=== PATIENT | female | born 1940 | race Caucasian/White ===

== ENCOUNTER 2016-12-18 11:04 | Emergency (ER) | payer MEDICARE ==
[2016-12-18] MEDS ORDERED: Ketorolac Tromethamine 30 MG/ML VIAL ONE (13:07)
[2016-12-18] MEDS ORDERED: Ondansetron HCl/PF 4 MG/2 ML Vial ONE (13:07)
[2016-12-18] MEDS ORDERED: cloNIDine HCl 0.1 MG TAB ONE (13:07)
[2016-12-18 13:14] LABS: Eosinophils 2 % (0-10); Hemoglobin 12.7 g/dL (12.0-16.0); Lymphocytes 25 % (21-51); MDiff Complete? YES; Mean Corpuscular HGB CONC 33.6 g/dL (32.0-36.0); Mean Corpuscular Hemoglobin 31.4 pg (27.0-31.0); Mean Corpuscular Volume 93.3 fl (81.0-99.0); Monocytes 6 % (0-10); Neutrophil 65 % (42-75); Platelet Count 322 thou/uL (130-400); RBC Distribution Width 11.3 % (11.5-14.5); Reactive Lymphocytes 2 % (0-10); Red Blood Cell (RBC) Count 4.03 mill/uL (4.20-5.40); White Blood Cell (WBC) Count 8.9 thou/uL (4.8-10.8)
[2016-12-18 13:20] LABS: INR-International Normal Ratio 0.9; PTT 27.3 SEC (22.9-36.1); Prothrombin Time 12.1 SEC (12.0-14.7)
[2016-12-18 13:30] LABS: ALT (SGPT) 13 U/L (0-55); AST (SGOT) 20 U/L (5-34); Albumin 3.9 g/dL (3.4-4.8); Alkaline Phosphatase 66 U/L (40-150); Anion Gap 16 mmol/L (10-20); BUN (Urea Nitrogen) 37 mg/dL (9.8-20.1); Bilirubin, Total 0.3 mg/dL (0.2-1.2); CK (CPK) 91 U/L (29-168); Calc. Creatinine Clearance 0 mL/min (70-130); Calcium 9.5 mg/dL (7.8-10.44); Carbon Dioxide 24 mmol/L (23-31); Chloride 100 mmol/L (98-107); Estimated GFR-MDRD 41; Globulin 3.2 g/dL (2.4-3.5); Glucose 72 mg/dL (83-110); Potassium 4.7 mmol/L (3.5-5.1); Protein, Total 7.1 g/dL (5.8-8.1); Sodium 135 mmol/L (136-145)
[2016-12-18 13:32] LABS: CKMB 1.7 ng/mL (0-6.6); Troponin I 0.011 ng/mL (< 0.028)
--- NOTE | 2016-12-18 13:56 | RAD ---
AP CHEST: History: 76-year-old with history of chest pain. Date: 12-18-16 Comparison: 03-09-15 FINDINGS: AP view chest demonstrates a granuloma in the mid right lung. The lungs are well aerated. No evide nce of active intrathoracic disease is seen. No evidence of effusions, pneumonia or pneumothorax se en. IMPRESSION: Unremarkable AP view chest. POS: [facility]
--- NOTE | 2016-12-18 15:27 | ERRECORD ---
[facility] EMERGENCY RECORD HPI GENERAL (13:02 LLDO) CHIEF COMPLAINT: Patient presents for evaluation of elevated blood pressure. admits to not always taking her meds on time...or at all sometimes. has chronic pain in the left knee and is being seen for it. has been having left chest pain at times for a couple of months. no sob or nausea or diaphoresis. pain worse with palpation, movement or deep breathing. HISTORIAN: History provided by patient, History provided by patient's caregiver, also has frontal headache. MECHANISM OF INJURY: Unknown mechanism, Mechanism of injury is unknown, No alcohol use associated with this incident, No drug use associated with this incident, No domestic violence associated with this incident. LOCATION: Symptoms are generalized. SEVERITY: Maximum severity of symptoms moderate, Currently symptoms are moderate. TIME COURSE: Gradual onset of symptoms, Symptoms are worsening, are constant. ASSOCIATED WITH: Associated with ONLY ABOVE. EXACERBATED BY: Patient's condition exacerbated by ACTIVITY. RELIEVED BY: Patient's condition relieved by nothing. ROS CONSTITUTIONAL: Negative constitutional review of systems. (13:06 LLDO) EYES: Negative eye review of systems, Historian denies eye pain, denies eye redness, denies eye discharge. (13:12 LLDO) ENT: Negative ears, nose, throat review of systems, Historian denies epistaxis, denies rhinorrhea, denies sinus pain, denies sore throat. (13:12 LLDO) CARDIOVASCULAR: Historian reports chest pain, no radiation, Historian denies diaphoresis, denies dyspnea on exertion, denies syncope, denies palpitations. no carotid bruits. (13:06 LLDO) RESPIRATORY: Negative respiratory review of systems. (13:06 LLDO) GI: Negative gastrointestinal review of systems. (13:06 LLDO) GENITOURINARY FEMALE: Negative genitourinary review of systems, Historian denies dysuria, denies frequency, denies urgency. (13:12 LLDO) MUSCULOSKELETAL: Historian reports arthralgias, reports myalgias. (13:06 LLDO) SKIN: Negative skin review of systems, Historian denies cellulitis, denies rash, denies skin changes, denies skin lesions. (13:12 LLDO) NEUROLOGIC: Historian denies confusion, denies dizziness, denies dysphasia, denies focal weakness, denies gait changes, reports headache, denies irritability, denies lethargy, denies mental status changes. (13:06 LLDO) HEMO/LYMPHATIC: Normal hematologic/lymphatic system review, Historian denies abnormal blood clotting, denies gum bleeding, denies petechiae. (13:12 LLDO) &a-1R&a+25V*p+0X*w1959G*c152B*c15G*c2P*p-0X&a-25V&a+1RName: Heather Yañez : F76 MedRec: [id number] AcctNum: [id number] Prepared: [facility] Dec 18, 2016 14:53 by Interface Page 1 of 4 pMD [facility] EMERGENCY RECORD ALLERGIC/IMMUNOLOGIC: Normal allergy/immunologic system review, Historian denies eczema, denies environmental allergies, denies food allergies. (13:12 LLDO) PSYCHIATRIC: Negative psychiatric review of systems, Historian denies alcohol abuse, denies anxiety, denies depression, denies drug abuse, denies hallucinations. (13:12 LLDO) NOTES: All systems reviewed, negative except as described above. (13:06 LLDO) PAST MEDICAL HISTORY MEDICAL HISTORY: Flu vaccine not up to date, Tetanus not up to date, Pneumococcal vaccine not up to date, Notes: 99% blockage in RCA Unkown kind of cancer CAD HTN CO with stent, Past medical history includes endocrine disease, hypothyroidism. (11:26 CJEF) FEMALE SURGICAL HISTORY: Cardiac stent, Surgical history of hysterectomy, Surgical history of oophorectomy. (11:26 CJEF) SOCIAL HISTORY: Patient denies alcohol use, Patient denies drug use, Patient has no smoking history. (11:26 CJEF) NOTES: Nursing records reviewed, Agree with nursing records, Medication list reviewed. (13:11 LLDO) KNOWN ALLERGIES codeine (Unconfirmed) codeine sulfate ether iodine Iodine and Iodide Containing Produc (Unconfirmed) LORazepam morphine CURRENT MEDICATIONS Synthroid: TABLET : Strength - 150 mcg : ORAL Patient Dose: 1 tab(s) Oral once a day (in the morning). (11:24 CJEF) losartan: TABLET : Strength - 25 mg : ORAL Patient Dose: 50 mg Oral once a day. (11:25 CJEF) VITAL SIGNS VITAL SIGNS: BP: 237/83, Pulse: 69, Resp: 18, Temp: 97.4 (Tympanic), Pain: 6, O2 sat: 99 on Room Air, Time: 12/18/2016 11:19. (11:19 CJEF) BP: 199/95, Pulse: 63, Resp: 17, Pain: 6, O2 sat: 99 on Room Air, Time: 12/18/2016 12:08. (12:08 CJEF) BP: 228/82, Pulse: 63, Resp: 15, O2 sat: 99 on Room Air, Time: 12/18/2016 12:21. (12:21 CJEF) &a-1R&a+25V*p+0X*a0148E*c152B*c15G*c2P*p-0X&a-25V&a+1RName: Heather Yañez : F76 MedRec: [id number] AcctNum: [id number] Prepared: [facility] Dec 18, 2016 14:53 by Interface Page 2 of 4 pMD [facility] EMERGENCY RECORD BP: 222/93, Pulse: 59, Resp: 16, O2 sat: 100 on Room Air, Time: 12/18/2016 12:43. (12:43 CJEF) BP: 219/82, Pulse: 63, Resp: 21, O2 sat: 99 on Room Air, Time: 12/18/2016 13:00. (13:00 CJEF) BP: 219/82, Pulse: 66, Resp: 17, O2 sat: 99 on Room Air, Time: 12/18/2016 13:12. (13:12 CJEF) BP: 228/94, Pulse: 75, Resp: 20, Time: 12/18/2016 13:15. (13:15 SCHI) BP: 205/84, Pulse: 58, Resp: 18, Pain: 4, O2 sat: 99 on Room Air, Time: 12/18/2016 13:34. (13:34 LWAL) BP: 181/76, Pulse: 60, Resp: 20, O2 sat: 99 on Room Air, Time: 12/18/2016 13:48. (13:48 CJEF) BP: 181/80, Pulse: 54, Resp: 14, O2 sat: 99 on Room Air, Time: 12/18/2016 13:59. (13:59 CJEF) BP: 159/69, Pulse: 60, Resp: 19, O2 sat: 99 on Room Air, Time: 12/18/2016 14:16. (14:16 CJEF) BP: 185/80, Pulse: 57, Resp: 15, Temp: 97.6 (Tympanic), Pain: 4, O2 sat: 98 on Room Air, Time: 12/18/2016 14:31. (14:31 CJEF) BP: 171/75, Pulse: 54, Resp: 18, O2 sat: 99 on Room Air, Time: 12/18/2016 14:44. (14:44 CJEF) PHYSICAL EXAM CONSTITUTIONAL: Vital signs reviewed, Patient afebrile, Pulse normal, Blood pressure, BP ELEVATED, Respiratory rate normal, Patient appears non toxic, Patient appears in pain, in moderate pain distress, Patient alert and oriented to person, place and time. (13:08 LLDO) HEAD: Head exam normal, Head exam included findings of head atraumatic, normocephalic. (13:12 LLDO) EYES: Eye exam normal, Eye exam included findings of eyelids normal to inspection, Pupils equally round and reactive to light, Extraocular muscles intact. (13:12 LLDO) ENT: ENT exam normal, Ear exam normal, Nose exam normal. (13:12 LLDO) NECK: Neck exam normal, Neck exam included findings of normal range of motion, Trachea midline, no meningeal signs, no tenderness. (13:12 LLDO) RESPIRATORY CHEST: Respiratory exam included findings of no respiratory distress, Breath sounds clear, Chest exam included findings of chest movement symmetrical, Chest expansion equal, Tenderness, mild, to the left anterior chest, to the left lateral chest. (13:08 LLDO) CARDIOVASCULAR: Cardiovascular exam included findings of heart rate regular rate and rhythm, Heart sounds normal, Point of maximal impulse normal. (13:08 LLDO) ABDOMEN FEMALE: Abdominal exam included findings of abdomen nontender, Bowel sounds normal, Liver normal, Spleen normal, no distension, no mass, no pulsatile masses, no peritoneal signs. (13:08 LLDO) BACK: Back exam normal, Back exam included findings of normal inspection, range of motion normal. (13:12 LLDO) UPPER EXTREMITY: Upper extremity exam normal, Upper extremity &a-1R&a+25V*p+0X*x2706E*c152B*c15G*c2P*p-0X&a-25V&a+1RName: Heather Yañez : F76 MedRec: [id number] AcctNum: [id number] Prepared: [facility] Dec 18, 2016 14:53 by Interface Page 3 of 4 pMD [facility] EMERGENCY RECORD exam included findings of inspection normal, Range of motion normal. (13:12 LLDO) LOWER EXTREMITY: left knee frozen in slight flexion, painful. (13:08 LLDO) NEURO: Neuro exam normal, Neuro exam findings include patient oriented to person, place and time, Speech normal, [place] coma scale 15. (13:12 LLDO) SKIN: Skin exam normal, Skin exam included findings of skin warm, dry, and normal in color, no rash. (13:12 LLDO) PSYCHIATRIC: Psychiatric exam normal, Psychiatric exam included findings of patient oriented to person place and time, Normal affect. (13:12 LLDO) MEDICATION ADMINISTRATION SUMMARY Drug Name: Toradol intravenous, Dose Ordered: 15 mg, Route: IV Push, Status: Given, Time: 13:17 12/18/2016, Drug Name: Zofran intravenous, Dose Ordered: 8 mg, Route: IV Push, Status: Given, Time: 13:17 12/18/2016, Drug Name: Catapres, Dose Ordered: 0.1 mg, Route: Oral, Status: Given, Time: 13:11 12/18/2016, Detailed record available in Medication Service section. DOCTOR NOTES TEXT: feeling much better and vital signs now much better. 168/80. (14:35 LLDO) has apt with pcp in 6 days. (14:37 LLDO) PATIENT PLAN: The patient will be discharged, The patient will follow up with primary care physician. (14:35 LLDO) PROBLEM LIST No recorded problems DIAGNOSIS (14:39 LLDO) FINAL: PRIMARY: Hypertension. PRESCRIPTION (14:42 LLDO) Fioricet: TABLET : 50 mg-325 mg-40 mg : ORAL : Quantity: 2 Unit: tab(s) Route: ORAL Schedule: every 4 hours prn Dispense: 24 Unit: tab(s) May substitute. Refills: 1 . NOTES: No Refills. DISPOSITION PATIENT: Disposition Type: Discharge, Disposition: *Discharge Home. (14:39 OPAL) Patient left the department. (14:49 MICHELLE) Avalos: MICHELLE=LANI Rosas, Alondra JOSEPH=MD Heriberto, Ronald LEY=LANI Andujar, Imani MANRIQUEZ=LANI Recinos, Dayanaraa &a-1R&a+25V*p+0X*c3605Y*c152B*c15G*c2P*p-0X&a-25V&a+1RName: Heather Yañez : F76 MedRec: [id number] AcctNum: [id number] Prepared: [facility] Dec 18, 2016 14:53 by Interface Page 4 of 4 pMD MTDD
--- NOTE | 2016-12-18 15:30 | PICIS ---
[facility] EMERGENCY RECORD TRIAGE (11:21 CJEF) TRIAGE NOTES: PT REPORTS THAT HER LAST BP TAKEN AT HOME WAS 214/98. PT ALSO REPORTS HEADACHE. PT REPORTS PAIN TO THE LEFT LUNG AND LEFT ARM, WHICH HAS RESOLVED. PT REPORTS THAT SHE TOOK ANOTHER LOSARTAN AND FEELS THAT THIS PAIN HAS IMPROVED. (11:21 CJEF) PATIENT: NAME: Heather Yañez, AGE: 76, GENDER: female, : Sun 1940, TIME OF GREET: ThuDec 18, 2016 11:04, PREFERRED LANGUAGE: Greek, ETHNICITY: Not or , ECODE BILLING MAP: [facility], SSN: [id number], Zip Code: [address], KG WEIGHT: 51.26, , , PERSON ID: [id number], PCP: NATY. (11:21 CJEF) PHONE: . (13:17) COMPLAINT: HIGH BP/HEADACHE. (11:21 CJEF) ADMISSION: URGENCY: 2 Emergent, ADMISSION SOURCE: Home, TRANSPORT: Walk-in, BED: TRIAGE. (11:21 CJEF) ASSESSMENT: Assessment: HIGH BP AND HEADACHE. (11:26 CJEF) PAIN: Patient complains of pain described as, Location LEFT "LUNG", LEFT AND RIGHT ARM INTERMIITTENTLY. (11:26 CJEF) IMMUNIZATIONS: Flu vaccine not up to date, Tetanus not up to date, Pneumococcal vaccine not up to date. (11:26 CJEF) SIRS SCORING: Heart Rate 55-109 (0), Temp range 96.8-101.1 (0), respiratory rate 12-24 (0), Mental Status altered: no (0), Infection or Suspected Infection: No. (11:26 CJEF) TRIAGE SCREENING: Patient denies suicidal ideation, Patient denies presence of domestic violence. (11:26 CJEF) PROVIDERS: TRIAGE NURSE: Alondra Rosas RN. (11:21 CJEF) VITAL SIGNS: BP 237/83, Pulse 69, Resp 18, Temp 97.4, (Tympanic), Pain 6, O2 Sat 99, on Room Air, Time 12/18/2016 11:19. (11:19 CJEF) PREVIOUS VISIT ALLERGIES: codeine, ether, Iodine and Iodide Containing Produc, lorazepam, morphine. (11:21 CJEF) codeine, ether, Iodine and Iodide Containing Produc, lorazepam, morphine. (11:26 CJEF) KNOWN ALLERGIES codeine (Unconfirmed) codeine sulfate ether iodine Iodine and Iodide Containing Produc (Unconfirmed) LORazepam morphine CURRENT MEDICATIONS Synthroid: TABLET : Strength - 150 mcg : ORAL Patient Dose: 1 tab(s) Oral once a day (in the morning). (11:24 CJEF) losartan: TABLET : Strength - 25 mg : ORAL &a-1R&a+25V*p+0X*[id number]*c152B*c15G*c2P*p-0X&a-25V&a+1RName: Heather Yañez : F76 MedRec: [id number] AcctNum: [id number] Prepared: [facility] Dec 18, 2016 14:53 by Interface Page 1 of 13 pMD [facility] EMERGENCY RECORD Patient Dose: 50 mg Oral once a day. (11:25 CJEF) VITAL SIGNS VITAL SIGNS: BP: 237/83, Pulse: 69, Resp: 18, Temp: 97.4 (Tympanic), Pain: 6, O2 sat: 99 on Room Air, Time: 12/18/2016 11:19. (11:19 CJEF) BP: 199/95, Pulse: 63, Resp: 17, Pain: 6, O2 sat: 99 on Room Air, Time: 12/18/2016 12:08. (12:08 CJEF) BP: 228/82, Pulse: 63, Resp: 15, O2 sat: 99 on Room Air, Time: 12/18/2016 12:21. (12:21 CJEF) BP: 222/93, Pulse: 59, Resp: 16, O2 sat: 100 on Room Air, Time: 12/18/2016 12:43. (12:43 CJEF) BP: 219/82, Pulse: 63, Resp: 21, O2 sat: 99 on Room Air, Time: 12/18/2016 13:00. (13:00 CJEF) BP: 219/82, Pulse: 66, Resp: 17, O2 sat: 99 on Room Air, Time: 12/18/2016 13:12. (13:12 CJEF) BP: 228/94, Pulse: 75, Resp: 20, Time: 12/18/2016 13:15. (13:15 SCHI) BP: 205/84, Pulse: 58, Resp: 18, Pain: 4, O2 sat: 99 on Room Air, Time: 12/18/2016 13:34. (13:34 LWAL) BP: 181/76, Pulse: 60, Resp: 20, O2 sat: 99 on Room Air, Time: 12/18/2016 13:48. (13:48 CJEF) BP: 181/80, Pulse: 54, Resp: 14, O2 sat: 99 on Room Air, Time: 12/18/2016 13:59. (13:59 CJEF) BP: 159/69, Pulse: 60, Resp: 19, O2 sat: 99 on Room Air, Time: 12/18/2016 14:16. (14:16 CJEF) BP: 185/80, Pulse: 57, Resp: 15, Temp: 97.6 (Tympanic), Pain: 4, O2 sat: 98 on Room Air, Time: 12/18/2016 14:31. (14:31 CJEF) BP: 171/75, Pulse: 54, Resp: 18, O2 sat: 99 on Room Air, Time: 12/18/2016 14:44. (14:44 CJEF) NURSING ASSESSMENT: CARDIOVASCULAR (11:26 CJEF) CONSTITUTIONAL: Complex assessment performed, Patient arrives ambulatory, Gait steady, History obtained from patient, Patient appears, anxious, Patient cooperative, Patient alert, Oriented to person, place and time, Skin warm, Skin dry, Skin normal in color, Mucous membranes pink, Mucous membranes moist, Patient is well-groomed, PT REPORTS THAT HER LAST BP TAKEN AT HOME WAS 214/98. PT ALSO REPORTS HEADACHE. PT REPORTS PAIN TO THE LEFT LUNG AND LEFT ARM, WHICH HAS RESOLVED. PT REPORTS THAT SHE TOOK ANOTHER LOSARTAN AND FEELS THAT THIS PAIN HAS IMPROVED. PT REPORTS THAT THE LEFT ARM PAIN IS INTERMITTENT AND SOMETIMES INVOLVES THE RIGHT ARM. WHEN ASKED WHERE THE "LUNG PAIN" IS LOCATED, THE PT POINTS UNDER LEFT BREAST WRAPPING AROUND THE LEFT SIDE AREA. PAIN: aching pain, LEFT "LUNG", LEFT AND RIGHT ARM, on a scale 0-10 patient rates pain as 6. CARDIOVASCULAR: Cardiovascular assessment findings include heart rate normal, Heart rhythm normal sinus, Heart sounds normal, S1, S2, No associated diaphoresis, no associated dyspnea, no associated palpitations. RESPIRATORY/CHEST: Breath sounds clear, Respiratory assessment findings include respiratory effort easy, Respirations regular, &a-1R&a+25V*p+0X*v1231Q*c152B*c15G*c2P*p-0X&a-25V&a+1RName: Heather Yañez : F76 MedRec: [id number] AcctNum: [id number] Prepared: [facility] Dec 18, 2016 14:53 by Interface Page 2 of 13 pMD [facility] EMERGENCY RECORD Conversing normally, Neck and chest exam findings include trachea midline, Chest expansion equal, Chest movement symmetrical, no signs of distress, Associated with cough, productive of, white sputum. NOTES: Patient tolerated procedure well. SAFETY: Side rails up, Cart/Stretcher in lowest position, Family at bedside, Call light within reach, Hospital ID band on. NURSING ASSESSMENT: FALL RISK (11:39 CJ) FALL RISK: Fall risk assessment findings include: no history of falls (0), No bed rest greater than 2 days (0), No use of level of consciousness altering agents with mentation or cognitive changes (0), Change in blood pressure (1), Sensory deficits (1), Impaired mobility (3), No neurologic diagnosis (0), No elimination problems (0), No confusion (0), Total score 5, Fall risk. HENDRICH II FALL RISK: Hendrich II Fall Risk assessment findings include patient not confused, disoriented or impulsive, not symptomatic or depressed, no altered elimination, no dizziness or vertigo, female, no antiepileptics (anticonvulsants) administered, no Benzodiazepines administered, Multiple attempts, but successful(3), Total score 3, Score less than 5. Patient not high risk for falls. NURSING ASSESSMENT: SKIN (11:39 CJEF) SKIN: Skin assessment findings include skin warm, Skin dry, Skin normal in color. LISA SCALE: (3) Sensory perception slightly limited, (3) Skin is occasionally moist, (3) Patient walks occasionally, (3) Slightly limited mobility, (3) Adequate nutrition, (3) Patient has no apparent problem moving, Lisa Risk Total: 18. NOTES: Patient tolerated procedure well. SAFETY: Side rails up, Cart/Stretcher in lowest position, Family at bedside, Call light within reach, Hospital ID band on. NURSING PROCEDURE: BEDSIDE SIRS TESTING (13:17 CJEF) SCORES: Heart Rate 55-109 (0), Temp range 96.8-101.1 (0), respiratory rate 12-24 (0), Latest WBC 3-14.9 (0), Mental Status altered: no (0), Infection or Suspected Infection: No. NURSING PROCEDURE: PHOTOGRAPHER'S MODEL (11:39 CJEF) PATIENT IDENTIFIER: Patient actively involved in identification process, Patient's identity verified by patient stating name, Patient's identity verified by patient stating date. PHOTOGRAPHER'S MODEL: Cardiac monitoring indicated for complaint of chest pain, Patient placed on all around presser, Heart rate: 61, showing normal sinus rhythm, Patient placed on non-invasive blood pressure monitor, with disposable blood pressure cuff applied, Patient placed on continuous pulse oximetry, Adult/pediatric oxisensor applied. &a-1R&a+25V*p+0X*m3621S*c152B*c15G*c2P*p-0X&a-25V&a+1RName: Heather Yañez : F76 MedRec: [id number] AcctNum: [id number] Prepared: Mila Dec 18, 2016 14:53 by Interface Page 3 of 13 D [facility] EMERGENCY RECORD FOLLOW-UP: After procedure, alarms set and on, After procedure, patient tolerating monitoring. NOTES: Patient tolerated procedure well. SAFETY: Side rails up, Cart/Stretcher in lowest position, Family at bedside, Call light within reach, Hospital ID band on. NURSING PROCEDURE: DISCHARGE NOTE (14:48 CJEF) DISCHARGE: Patient discharged to home, ambulating without assistance, family driving, accompanied by other family member, Summary of Care printed/ provided, Patient requested and was provided an electronic copy of Discharge Instructions, Transition record given to patient, Discharge instructions given to patient, Simple or moderate discharge teaching performed, Prescriptions given and instructions on side effects given, Medication reconciliation form given, Above person(s) verbalized understanding of discharge instructions and follow-up care, Patient treated and evaluated by physician. BELONGINGS: Belongings remain with patient. NOTES: Patient tolerated procedure well. SAFETY: Side rails up, Cart/Stretcher in lowest position, Family at bedside, Call light within reach, Hospital ID band on. NURSING PROCEDURE: EKG CHART (11:38 CJEF) PATIENT IDENTIFIER: Patient actively involved in identification process, Patient's identity verified by patient stating name, Patient's identity verified by patient stating date. EKG: EKG indicated for complaint of chest pain, 12 lead EKG performed on the left chest, first EKG. FOLLOW-UP: After procedure, EKG for interpretation given to Dr. LOUIS. NOTES: Patient tolerated procedure well. SAFETY: Side rails up, Cart/Stretcher in lowest position, Family at bedside, Call light within reach, Hospital ID band on. NURSING PROCEDURE: IV PATIENT IDENITIFIER: Patient actively involved in identification process, Patient's identity verified by patient stating name, Patient's identity verified by patient stating date. (12:31 CJEF) IV SITE 1: IV therapy indicated for hydration, IV therapy indicated for medication administration, IV established, to the left antecubital, using an 18 gauge catheter, in one attempt, IV site prepped with CHLORAPREP, Saline lock established, Flushed with normal saline (mls): 10, Labs drawn at time of placement, labeled in the presence of the patient and sent to lab. (12:31 CJEF) FOLLOW-UP SITE 1: After procedure, 2x2 dressing applied, IV discontinued, due to patient being discharged, catheter intact. (14:44 CJEF) NOTES: Patient tolerated procedure well. (12:31 CJEF) SAFETY: Side rails up, Cart/Stretcher in lowest position, Family at bedside, Call light within reach, Hospital ID band on. (12:31 &a-1R&a+25V*p+0X*g6918E*c152B*c15G*c2P*p-0X&a-25V&a+1RName: Heather Yañez : F76 MedRec: [id number] AcctNum: [id number] Prepared: [facility] Dec 18, 2016 14:53 by Interface Page 4 of 13 pMD [facility] EMERGENCY RECORD CJEF) NURSING PROCEDURE: NURSE NOTES NURSES NOTES: Patient in no apparent distress, Patient resting quietly, Notes: PT RESTING IN BED QUIETLY WITH FAMILY AT BEDSIDE. NO DISTRESS NOTED. (12:07 CJEF) Patient in no apparent distress, Patient resting quietly, Notes: PT RESTING IN BED QUIETLY WITH FAMILY AT BEDSIDE. NO DISTRESS NOTED. (13:00 CJEF) Patient in no apparent distress, Patient resting quietly. (13:12 CJEF) Notes: pt assisted to bathroom. pt walking well. no dizziness noted. (13:25 LWAL) Patient in no apparent distress, Patient resting quietly, Notes: PT RESTING IN BED QUIETLY WITH FAMILY AT BEDSIDE. NO DISTRESS NOTED. (13:32 CJEF) Patient in no apparent distress, Patient resting quietly, Notes: PT RESTING IN BED QUIETLY WITH FAMILY AT BEDSIDE. NO DISTRESS NOTED. (14:31 CJEF) NURSING PROCEDURE: TRANSPORT TO TESTS PATIENT IDENTIFIER: Patient actively involved in identification process, Patient's identity verified by patient stating name, Patient's identity verified by patient stating date. (13:49 CJEF) TRANSPORT TO TESTS: Transport indicated to facilitate diagnosis, Patient transported to x-ray, via wheelchair. (13:49 CJEF) FOLLOW-UP: After procedure, patient returned to emergency department. (13:55 CJEF) NOTES: Patient tolerated procedure well. (13:49 CJEF) SAFETY: Side rails up, Cart/Stretcher in lowest position, Family at bedside, Call light within reach, Hospital ID band on. (13:49 CJEF) ORDER DETAILS Order Name: B type Natriuretic Peptide, Status: Active, Time: 13:00 12/18/2016, User: OPAL, - Ordered for: MD Louis Lloyd, - Entered by: MD Louis Lloyd - [facility] Dec 18, 2016 13:00, - Quantity: 1, Order Name: PHOTOGRAPHER'S MODEL ED, Status: Done, Time: 11:41 12/18/2016, User: MICHELLE, - Ordered for: MD Louis Lloyd, - Entered by: LANI Rosas, [facility] Dec 18, 2016 11:41, - Quantity: 1, Order Name: Cardiac Profile w/CKMB & Troponin - I, Status: Active, Time: 13:00 12/18/2016, User: OPAL, - Ordered for: MD Louis Lloyd, - Entered by: MD Louis Lloyd - ThuDec 18, 2016 13:00, - Quantity: 1, Order Name: CBC with Differential, Status: Active, Time: 13:00 &a-1R&a+25V*p+0X*j5297A*c152B*c15G*c2P*p-0X&a-25V&a+1RName: Heather Yañez : F76 MedRec: [id number] AcctNum: [id number] Prepared: ThuDec 18, 2016 14:53 by Interface Page 5 of 13 pMD [facility] EMERGENCY RECORD 12/18/2016, User: OPAL, - Ordered for: MD Louis Lloyd, - Entered by: MD Louis Lloyd - [facility] Dec 18, 2016 13:00, - Quantity: 1, Order Name: CK (CPK), Status: Active, Time: 13:00 12/18/2016, User: LL, - Ordered for: MD Louis Lloyd, - Entered by: MD Louis Lloyd - [facility] Dec 18, 2016 13:00, - Quantity: 1, Order Name: Comprehensive Metabolic Panel, Status: Active, Time: 13:00 12/18/2016, User: OPAL, - Ordered for: MD Louis Lloyd, - Entered by: MD Louis Lloyd - [facility] Dec 18, 2016 13:00, - Quantity: 1, Order Name: EKG 12 Lead in Emergency Room, Status: Active, Time: 11:41 12/18/2016, User: MICHELLE, - Ordered for: MD Louis Lloyd, - Entered by: LANI Rosas Cassie - Mila Dec 18, 2016 11:41, - Quantity: 1, Order Name: Protime with INR, Status: Active, Time: 13:00 12/18/2016, User: OPAL, - Ordered for: MD Louis Lloyd, - Entered by: MD Louis Lloyd - [facility] Dec 18, 2016 13:00, - Quantity: 1, Order Name: PTT, Status: Active, Time: 13:00 12/18/2016, User: LL, - Ordered for: MD Louis Lloyd, - Entered by: MD Louis Lloyd - [facility] Dec 18, 2016 13:00, - Quantity: 1, Order Name: SALINE LOCK, Status: Done, Time: 12:34 12/18/2016, User: CJEF, - Ordered for: MD Louis Lloyd, - Entered by: LANI Rosas Cassie - Mila Dec 18, 2016 12:34, - Quantity: 1, Order Name: XR Chest Pa & Lat STANDARD, Status: Active, Time: 13:00 12/18/2016, User: LL, - Ordered for: MD Louis Lloyd, - Entered by: MD Louis Lloyd - [facility] Dec 18, 2016 13:00, - Quantity: 1. MEDICATION ADMINISTRATION SUMMARY Drug Name: Toradol intravenous, Dose Ordered: 15 mg, Route: IV Push, Status: Given, Time: 13:17 12/18/2016, Drug Name: Zofran intravenous, Dose Ordered: 8 mg, Route: IV Push, Status: Given, Time: 13:17 12/18/2016, Drug Name: Catapres, Dose Ordered: 0.1 mg, Route: Oral, Status: Given, Time: 13:11 12/18/2016, Detailed record available in Medication Service section. MEDICATION SERVICE Catapres: Order: Catapres (clonidine HCl) - Dose: 0.1 &a-1R&a+25V*p+0X*u4205V*c152B*c15G*c2P*p-0X&a-25V&a+1RName: Heather Yañez : F76 MedRec: [id number] AcctNum: [id number] Prepared: ThuDec 18, 2016 14:53 by Interface Page 6 of 13 pMD [facility] EMERGENCY RECORD mg : Oral Ordered by: Ronald Louis MD Entered by: Ronald Louis MD ThuDec 18, 2016 13:01 , Acknowledged by: Raymond Recinos RN Mila Dec 18, 2016 13:06 Documented as given by: Raymond Recinos RN Mila Dec 18, 2016 13:11 Patient, Medication, Dose, Route and Time verified prior to administration. Site: Medication administered P.O., Correct patient, time, route, dose and medication confirmed prior to administration, Patient advised of actions and side-effects prior to administration, Allergies confirmed and medications reviewed prior to administration. Toradol intravenous: Order: Toradol intravenous (ketorolac tromethamine) - Dose: 15 mg : IV Push Schedule: Now Ordered by: Ronald Louis MD Entered by: Ronald Louis MD [facility] Dec 18, 2016 13:00 , Acknowledged by: Raymond Recinos RN [facility] Dec 18, 2016 13:05 Documented as given by: Raymond Recinos RN [facility] Dec 18, 2016 13:17 Patient, Medication, Dose, Route and Time verified prior to administration. IV SITE #1 IVP, subsequent different medication, Catheter placement confirmed via flush prior to administration, IV site without signs or symptoms of infiltration during medication administration, No swelling during administration, No drainage during administration, IV flushed after administration, Correct patient, time, route, dose and medication confirmed prior to administration, Patient advised of actions and side-effects prior to administration, Allergies confirmed and medications reviewed prior to administration. Zofran intravenous: Order: Zofran intravenous (ondansetron HCl) - Dose: 8 mg : IV Push Schedule: Now Ordered by: Ronald Louis MD Entered by: Ronald Louis MD [facility] Dec 18, 2016 13:00 , Acknowledged by: Raymond Recinos RN [facility] Dec 18, 2016 13:05 Documented as given by: Raymond Recinos RN [facility] Dec 18, 2016 13:17 Patient, Medication, Dose, Route and Time verified prior to administration. IV SITE #1 IVP, initial medication, Catheter placement confirmed via flush prior to administration, IV site without signs or symptoms of infiltration during medication administration, No swelling during administration, No drainage during administration, IV flushed after administration, Correct patient, time, route, dose and medication confirmed prior to administration, Patient advised of actions and side-effects prior to administration, Allergies confirmed and medications reviewed prior to administration. : Follow Up : Increased pain, _IV SITE #1:_, C/O WORSENING FLOWERS AND COLD FEELING. (13:18 SCHI) HPI GENERAL (13:02 LLDO) CHIEF COMPLAINT: Patient presents for evaluation of elevated blood pressure. admits to not always taking her meds on time...or at &a-1R&a+25V*p+0X*i9496W*c152B*c15G*c2P*p-0X&a-25V&a+1RName: Heather Yañez : F76 MedRec: [id number] AcctNum: [id number] Prepared: Mila Dec 18, 2016 14:53 by Interface Page 7 of 13 pMD [facility] EMERGENCY RECORD all sometimes. has chronic pain in the left knee and is being seen for it. has been having left chest pain at times for a couple of months. no sob or nausea or diaphoresis. pain worse with palpation, movement or deep breathing. HISTORIAN: History provided by patient, History provided by patient's caregiver, also has frontal headache. MECHANISM OF INJURY: Unknown mechanism, Mechanism of injury is unknown, No alcohol use associated with this incident, No drug use associated with this incident, No domestic violence associated with this incident. LOCATION: Symptoms are generalized. SEVERITY: Maximum severity of symptoms moderate, Currently symptoms are moderate. TIME COURSE: Gradual onset of symptoms, Symptoms are worsening, are constant. ASSOCIATED WITH: Associated with ONLY ABOVE. EXACERBATED BY: Patient's condition exacerbated by ACTIVITY. RELIEVED BY: Patient's condition relieved by nothing. ROS CONSTITUTIONAL: Negative constitutional review of systems. (13:06 LLDO) EYES: Negative eye review of systems, Historian denies eye pain, denies eye redness, denies eye discharge. (13:12 LLDO) ENT: Negative ears, nose, throat review of systems, Historian denies epistaxis, denies rhinorrhea, denies sinus pain, denies sore throat. (13:12 LLDO) CARDIOVASCULAR: Historian reports chest pain, no radiation, Historian denies diaphoresis, denies dyspnea on exertion, denies syncope, denies palpitations. no carotid bruits. (13:06 LLDO) RESPIRATORY: Negative respiratory review of systems. (13:06 LLDO) GI: Negative gastrointestinal review of systems. (13:06 LLDO) GENITOURINARY FEMALE: Negative genitourinary review of systems, Historian denies dysuria, denies frequency, denies urgency. (13:12 LLDO) MUSCULOSKELETAL: Historian reports arthralgias, reports myalgias. (13:06 LLDO) SKIN: Negative skin review of systems, Historian denies cellulitis, denies rash, denies skin changes, denies skin lesions. (13:12 LLDO) NEUROLOGIC: Historian denies confusion, denies dizziness, denies dysphasia, denies focal weakness, denies gait changes, reports headache, denies irritability, denies lethargy, denies mental status changes. (13:06 LLDO) HEMO/LYMPHATIC: Normal hematologic/lymphatic system review, Historian denies abnormal blood clotting, denies gum bleeding, denies petechiae. (13:12 LLDO) ALLERGIC/IMMUNOLOGIC: Normal allergy/immunologic system review, Historian denies eczema, denies environmental allergies, denies food allergies. (13:12 LLDO) &a-1R&a+25V*p+0X*b9748F*c152B*c15G*c2P*p-0X&a-25V&a+1RName: Heather Yañez : F76 MedRec: [id number] AcctNum: [id number] Prepared: Mila Dec 18, 2016 14:53 by Interface Page 8 of 13 pMD [facility] EMERGENCY RECORD PSYCHIATRIC: Negative psychiatric review of systems, Historian denies alcohol abuse, denies anxiety, denies depression, denies drug abuse, denies hallucinations. (13:12 LLDO) NOTES: All systems reviewed, negative except as described above. (13:06 LLDO) PAST MEDICAL HISTORY MEDICAL HISTORY: Flu vaccine not up to date, Tetanus not up to date, Pneumococcal vaccine not up to date, Notes: 99% blockage in RCA Unkown kind of cancer CAD HTN CA with stent, Past medical history includes endocrine disease, hypothyroidism. (11:26 CJEF) FEMALE SURGICAL HISTORY: Cardiac stent, Surgical history of hysterectomy, Surgical history of oophorectomy. (11:26 CJEF) SOCIAL HISTORY: Patient denies alcohol use, Patient denies drug use, Patient has no smoking history. (11:26 CJEF) NOTES: Nursing records reviewed, Agree with nursing records, Medication list reviewed. (13:11 LLDO) PHYSICAL EXAM CONSTITUTIONAL: Vital signs reviewed, Patient afebrile, Pulse normal, Blood pressure, BP ELEVATED, Respiratory rate normal, Patient appears non toxic, Patient appears in pain, in moderate pain distress, Patient alert and oriented to person, place and time. (13:08 LLDO) HEAD: Head exam normal, Head exam included findings of head atraumatic, normocephalic. (13:12 LLDO) EYES: Eye exam normal, Eye exam included findings of eyelids normal to inspection, Pupils equally round and reactive to light, Extraocular muscles intact. (13:12 LLDO) ENT: ENT exam normal, Ear exam normal, Nose exam normal. (13:12 LLDO) NECK: Neck exam normal, Neck exam included findings of normal range of motion, Trachea midline, no meningeal signs, no tenderness. (13:12 LLDO) RESPIRATORY CHEST: Respiratory exam included findings of no respiratory distress, Breath sounds clear, Chest exam included findings of chest movement symmetrical, Chest expansion equal, Tenderness, mild, to the left anterior chest, to the left lateral chest. (13:08 LLDO) CARDIOVASCULAR: Cardiovascular exam included findings of heart rate regular rate and rhythm, Heart sounds normal, Point of maximal impulse normal. (13:08 LLDO) ABDOMEN FEMALE: Abdominal exam included findings of abdomen nontender, Bowel sounds normal, Liver normal, Spleen normal, no distension, no mass, no pulsatile masses, no peritoneal signs. (13:08 LLDO) BACK: Back exam normal, Back exam included findings of normal &a-1R&a+25V*p+0X*w2591U*c152B*c15G*c2P*p-0X&a-25V&a+1RName: Heather Yañez : F76 MedRec: [id number] AcctNum: [id number] Prepared: [facility] Dec 18, 2016 14:53 by Interface Page 9 of 13 pMD [facility] EMERG[facility]Y RECORD inspection, range of motion normal. (13:12 LLDO) UPPER EXTREMITY: Upper extremity exam normal, Upper extremity exam included findings of inspection normal, Range of motion normal. (13:12 LLDO) LOWER EXTREMITY: left knee frozen in slight flexion, painful. (13:08 LLDO) NEURO: Neuro exam normal, Neuro exam findings include patient oriented to person, place and time, Speech normal, Domingo coma scale 15. (13:12 LLDO) SKIN: Skin exam normal, Skin exam included findings of skin warm, dry, and normal in color, no rash. (13:12 LLDO) PSYCHIATRIC: Psychiatric exam normal, Psychiatric exam included findings of patient oriented to person place and time, Normal affect. (13:12 LLDO) EVENTS TRANSFER: Triage to Emergency Triage. (ThuDec 18, 2016 11:21 CJEF) Emergency Triage to Main ED -01. (11:26 CJEF) Removed from Emergency Main ED -01. (14:49 CJEF) DOCTOR NOTES TEXT: feeling much better and vital signs now much better. 168/80. (14:35 LLDO) has apt with pcp in 6 days. (14:37 LLDO) PATIENT PLAN: The patient will be discharged, The patient will follow up with primary care physician. (14:35 LLDO) PROBLEM LIST No recorded problems DIAGNOSIS (14:39 LLDO) FINAL: PRIMARY: Hypertension. DISPOSITION PATIENT: Disposition Type: Discharge, Disposition: *Discharge Home. (14:39 LLDO) Patient left the department. (14:49 CJEF) INSTRUCTION (14:40 LLDO) DISCHARGE: HYPERTENSION, ESTABLISHED, OUT OF CONTROL. FOLLOWUP: Follow up with Primary Care Physician as scheduled. SPECIAL: Follow-up with your PCP. PRESCRIPTION (14:42 LLDO) Fioricet: TABLET : 50 mg-325 mg-40 mg : ORAL : Quantity: 2 Unit: tab(s) Route: ORAL Schedule: every 4 hours prn Dispense: 24 Unit: tab(s) May substitute. Refills: 1 . NOTES: No Refills. &a-1R&a+25V*p+0X*[id number]*c152B*c15G*c2P*p-0X&a-25V&a+1RName: Heather Yañez : F76 MedRec: [id number] AcctNum: [id number] Prepared: ThuDec 18, 2016 14:53 by Interface Page 10 of 13 pMD [facility] EMERGENCY RECORD IMAGING *EKG: Image captured from scanner. (12:50 JPAR) *DISCHARGE INSTRUCTIONS RECEIPT: Image captured from scanner. (14:49 CJEF) *SUPPLY CHARGE SHEET: Image captured from scanner. (14:49 CJEF) ADMIN (14:43 LLDO) DIGITAL SIGNATURE: Louis, MD, Ronald. RESULTS RADIOLOGY: XR Chest Pa & Lat STANDARD Observe DT: ThuDec 18, 2016 13:06, CXR2 AP CHEST: History: 76-year-old with history of chest pain. Date: 12-18-16 Comparison: 03-09-15 FINDINGS: AP view chest demonstrates a granuloma in the mid right lung. The lungs are well aerated. No evide nce of active intrathoracic disease is seen. No evidence of effusions, pneumonia or pneumothorax se en. IMPRESSION: Unremarkable AP view chest. POS: [facility] . (14:02 LWAL) LABORATORY: PTT Collection DT: ThuDec 18, 2016 13:06, See comment below , Anticoagulant? NONE Medical Necessity SUSPECT COAGULOPATHY , PTT 27.3 SEC, Range (22.9-36.1). (13:27 LWAL) Protime with INR Collection DT: ThuDec 18, 2016 13:06, See comment below , Anticoagulant? NONE Medical Necessity SUSPECT COAGULOPATHY , Prothrombin Time 12.1 SEC, Range (12.0-14.7), INR-International Normal Ratio 0.9 , ATTENTION: READ CAREFULLY , The, recommended therapeutic ranges for oral anticoagulant treatments are: , , Low Intensity: 1.5 - 2.0 Moderate Intensity: 2.0, - 3.0 &a-1R&a+25V*p+0X*c6057H*c152B*c15G*c2P*p-0X&a-25V&a+1RName: OtilioTommieja : F76 MedRec: [id number] AcctNum: [id number] Prepared: ThuDec 18, 2016 14:53 by Interface Page 11 of 13 pMD [facility] EMERGENCY RECORD High Intensity (1): 2.5 - 3.5 High, Intensity (2): 3.0 - 4.0 CRITICAL: >, 4.0 . (13:27 LWAL) CBC with Differential Collection DT: ThuDec 18, 2016 13:06, White Blood Cell (WBC) Count 8.9 thou/uL, Range (4.8-10.8), *Red Blood Cell (RBC) Count 4.03 - L mill/uL, Range (4.20-5.40), Hemoglobin 12.7 g/dL, Range (12.0-16.0), Hematocrit 37.6 %, Range (36.0-47.0), Mean Corpuscular Volume 93.3 fl, Range (81.0-99.0), *Mean Corpuscular Hemoglobin 31.4 - H pg, Range (27.0-31.0), Mean Corpuscular HGB CONC 33.6 g/dL, Range (32.0-36.0), *RBC Distribution Width 11.3 - L %, Range (11.5-14.5), Platelet Count 322 thou/uL, Range (130-400), Mean Platelet Volume 8.0 fL, Range (7.4-10.4), Neutrophil 65 %, Range (42-75), Lymphocytes 25 %, Range (21-51), Reactive Lymphocytes 2 %, Range (0-10), Monocytes 6 %, Range (0-10), Eosinophils 2 %, Range (0-10). (13:27 LWAL) Cardiac Profile w/CKMB & TropI Collection DT: ThuDec 18, 2016 13:06, CKMB 1.7 ng/mL, Range (0-6.6), Troponin I 0.011 ng/mL, Range (< 0.028), Reference Range , 0.00 - 0.028 ng/mL Negative 0.029 - 0.29 ng/mL , Indeterminate Greater or Equal to 0.3 ng/mL Strongly suggests CA , . (13:36 LWAL) CK (CPK) Collection DT: ThuDec 18, 2016 13:06, CK (CPK) 91 U/L, Range (29-168). (13:36 LWAL) Comprehensive Metabolic Panel Collection DT: ThuDec 18, 2016 13:06, *Sodium 135 - L mmol/L, Range (136-145), Potassium 4.7 mmol/L, Range (3.5-5.1), Chloride 100 mmol/L, Range (98-107), Carbon Dioxide 24 mmol/L, Range (23-31), Anion Gap 16 mmol/L, Range (10-20), *BUN (Urea Nitrogen) 37 - H mg/dL, Range (9.8-20.1), *Creatinine 1.27 - H mg/dL, Range (0.6-1.1), Estimated GFR-MDRD 41 , Reference Range for Estimated GFR: Greater than 90, mL/min/1.73 m2 NOTE: The MDRD equation has not been validated for use, with the elderly (over 70 years of age), women, patients with, serious comorbid condition or persons with extremes of body size, muscle, mass, or nutritional status. , *Glucose 72 - L mg/dL, Range (83-110), &a-1R&a+25V*p+0X*n2329F*c152B*c15G*c2P*p-0X&a-25V&a+1RName: Heather Yañez : F76 MedRec: [id number] AcctNum: [id number] Prepared: ThuDec 18, 2016 14:53 by Interface Page 12 of 13 pMD [facility] EMERGENCY RECORD Calcium 9.5 mg/dL, Range (7.8-10.44), Bilirubin, Total 0.3 mg/dL, Range (0.2-1.2), Protein, Total 7.1 g/dL, Range (5.8-8.1), NOTE: Plasma values are generally 0.3 to 0.5 g/dL higher than serum values, due to the presence of fibrinogen. , Albumin 3.9 g/dL, Range (3.4-4.8), Globulin 3.2 g/dL, Range (2.4-3.5), Alb/Glob Ratio 1.2 g/dL, Range (1.2-2.2), Alkaline Phosphatase 66 U/L, Range (40-150), AST (SGOT) 20 U/L, Range (5-34), ALT (SGPT) 13 U/L, Range (0-55). (13:36 LWAL) B type Natriuretic Peptide Collection DT: ThuDec 18, 2016 13:06, *B type Natriuretic Peptide 145.7 - H pg/mL, Range (0-100). (13:50 SCHI) Avalos: MICHELLE=LANI Rosas, Alondra BARRAZA=RANJIT Elkins Julia LLDO=MD Heriberto, Ronald LWALESSANDRO=LANI Andujar, Imani MANRIQUEZ=LANI Recinos, Raymond &a-1R&a+25V*p+0X*a2936M*c152B*c15G*c2P*p-0X&a-25V&a+1RName: Heather Yañez : F76 MedRec: [id number] AcctNum: [id number] Prepared: ThuDec 18, 2016 14:53 by Interface Page 13 of 13 pMD [facility] MEDICATION RECONCILIATION You were seen in the Emergency Department on: ThuDec 18, 2016 KNOWN ALLERGIES codeine (Unconfirmed) codeine sulfate ether iodine Iodine and Iodide Containing Produc (Unconfirmed) LORazepam morphine MEDICATIONS GIVEN WHILE IN THE EMERGENCY DEPARTMENT Toradol intravenous (ketorolac tromethamine) - Dose: 15 milligram(s) : IV Push Zofran intravenous (ondansetron HCl) - Dose: 8 milligram(s) : IV Push Catapres (clonidine HCl) - Dose: 0.1 milligram(s) : Oral HOME MEDICATIONS CONTINUE PRESCRIBED losartan : TABLET : Strength - 25 mg : ORAL Continue as prescribed Patient had been takin mg Oral once a day. Synthroid : TABLET : Strength - 150 mcg : ORAL Continue as prescribed Patient had been takin tab(s) Oral once a day (in the morning). Notes from the emergency department Reviewed with family Reviewed with patient Reviewed with family Reviewed with patient PRESCRIPTIONS (1) &a-1R&a+25V*p+0X*e7474Z*c202B*c15G*c2P*p-0X&a-25V&a+1R Name: Heather Yañez : 1940 F76 MedRec: [id number] AcctNum: [id number] Prepared: Mila Dec 18, 2016 14:53 by Interface pMD MTDD
== END 2016-12-18 14:50 | disposition home or self-care (01) ==
LOC: MADERS 11:04
DX: I10 Essential (primary) hypertension (principal); E03.9 Hypothyroidism, unspecified; Z79.899 Other long term (current) drug therapy
CPT/HCPCS: 36415; 71020; 80053; 82550; 82553; 83880; 84484; 85025; 85610; 85730; 93005; 96374; 96375; J1885; J2405

== ENCOUNTER 2019-01-02 12:11 | Emergency (ER) | payer MEDICARE ==
[2019-01-02 12:45] LABS: #Basophils 0.1 thou/uL (0.0-0.2); #Eosinphils 0.1 thou/uL (0.0-0.7); #Lymphocytes 1.8 thou/uL (1.20-3.40); #Monocytes 0.6 thou/uL (0.11-0.59); #Neutrophils 4.7 thou/uL (1.40-6.50); %Basophils 0.7 % (0.0-1.0); %Eosinophils 1.8 % (0.0-10.0); %Lymphocytes 24.3 % (21.0-51.0); %Monocytes 8.6 % (0.0-10.0); %Neutrophils 64.7 % (42.0-75.0); Hemoglobin 11.3 g/dL (12.0-16.0); Mean Corpuscular HGB CONC 32.7 g/dL (32.0-36.0); Mean Corpuscular Hemoglobin 29.7 pg (27.0-31.0); Mean Corpuscular Volume 90.7 fL (78.0-98.0); Mean Platelet Volume 6.8 fL (7.4-10.4); Platelet Count 378 thou/uL (130-400); RBC Distribution Width 12.1 % (11.5-14.5); Red Blood Cell (RBC) Count 3.79 mill/uL (4.20-5.40); White Blood Cell (WBC) Count 7.2 thou/uL (4.8-10.8)
[2019-01-02] MEDS ORDERED: Nitroglycerin 2% Ointment 1 INCH/1 GM Packet ONE (12:56)
[2019-01-02] MEDS ORDERED: Aspirin Chewable 81 MG TAB ONE (12:56)
[2019-01-02 13:01] LABS: ALT (SGPT) 22 U/L (8-55); AST (SGOT) 34 U/L (5-34); Albumin 3.4 g/dL (3.4-4.8); Alkaline Phosphatase 56 U/L (40-150); Anion Gap 16 mmol/L (10-20); BUN (Urea Nitrogen) 30 mg/dL (9.8-20.1); Bilirubin, Total 0.4 mg/dL (0.2-1.2); Calc. Creatinine Clearance 0 mL/min (70-130); Calcium 8.3 mg/dL (7.8-10.44); Carbon Dioxide 25 mmol/L (23-31); Chloride 96 mmol/L (98-107); Estimated GFR-MDRD 14; Globulin 3.8 g/dL (2.4-3.5); Glucose 103 mg/dL (83-110); Potassium 3.6 mmol/L (3.5-5.1); Protein, Total 7.2 g/dL (6.0-8.3); Sodium 133 mmol/L (136-145)
[2019-01-02] MEDS ORDERED: Furosemide 40 MG/4 ML VIAL ONE (13:15)
[2019-01-02] MEDS ORDERED: Acetaminophen 500 MG TAB ONE (13:15)
--- NOTE | 2019-01-02 13:52 | RAD ---
PORTABLE CHEST: Date: 01/02/19 COMPARISON: 03/09/15. HISTORY: Chest pain. FINDINGS: Heart size appears slightly enlarged with atherosclerotic changes of the aorta. The lungs are clear o f infiltrates. The bones appear demineralized. IMPRESSION: Cardiomegaly. POS: [facility]
== END 2019-01-02 14:42 | disposition home or self-care (01) ==
LOC: MADERS 12:11
DX: I11.0 Hypertensive heart disease with heart failure (principal); I50.9 Heart failure, unspecified; I16.0 Hypertensive urgency; I25.10 Atherosclerotic heart disease of native coronary artery without angina pectoris; I25.2 Old myocardial infarction; E03.9 Hypothyroidism, unspecified; Z79.899 Other long term (current) drug therapy
CPT/HCPCS: 36415; 71045; 80053; 83880; 85025; 93005; 96374; J1940